=== PATIENT | female | born 1960 | race Asian ===

== ENCOUNTER 2016-12-12 16:41 | Emergency (ER) | payer OTHER ==
[~2016-12-12] VITALS: Ht 154.9 cm; Wt 57.3 kg
[~2016-12-12 16:41] MED LIST: CANA100T PO; LIRA0.6P2 SQ; METF10002 PO; RAMI10CA23 PO; SIMV20TA6 PO
[2016-12-12 19:00] VITALS: BP 165/92
[2016-12-13 12:20] LABS: HEPATITIS Bs ANTIGEN SCREEN P Negative (Negative); HEPATITIS C AB SCREEN 0.1 s/co ratio (0.0-0.9)
== END 2016-12-12 19:14 | disposition home or self-care (01) ==
LOC: EMS 16:43
DX: S61.234A Puncture wound without foreign body of right ring finger without damage to nail, initial encounter (principal); E11.9 Type 2 diabetes mellitus without complications; I10 Essential (primary) hypertension; E78.00 Pure hypercholesterolemia, unspecified; X58.XXXA Exposure to other specified factors, initial encounter; Y93.89 Activity, other specified; Y92.89 Other specified places as the place of occurrence of the external cause; Y99.8 Other external cause status
CPT/HCPCS: 80074; 99284

== ENCOUNTER → 2017-07-02 | Outpatient (CLI) | payer OTHER ==
[~2017-07-02] MED LIST changes: -METF10002 PO
== END | disposition home or self-care (01) ==
LOC: EMPHLTH 07:59
PROVIDERS: ATTEND Internal Medicine
DX: R76.11 Nonspecific reaction to tuberculin skin test without active tuberculosis (principal)

== ENCOUNTER → 2017-07-05 | Outpatient (CLI) | payer OTHER ==
[2017-07-05 11:47] LABS: BASOPHILS # (AUTO) 0.03 K/uL (0.00-0.20); BASOPHILS % (AUTO) 0.5 % (0.0-2.0); EOSINOPHILS # (AUTO) 0.06 K/uL (0.00-0.70); EOSINOPHILS % (AUTO) 1.16 % (1.0-6.0); HEMATOCRIT 40.7 % (36-46); HEMOGLOBIN 13.5 g/dL (12.0-16.0); LYMPHOCYTES # (AUTO) 2.9 K/uL (1.0-4.8); LYMPHOCYTES % (AUTO) 52.8 % (22.0-44.0); MEAN CORPUSCULAR HEMOGLOBIN 23.9 pg (26.0-34.0); MEAN CORPUSCULAR HGB CONC 33.1 G/dL (31.0-37.0); MEAN CORPUSCULAR VOLUME 72 fL (80-100); MONOCYTES # (AUTO) 0.3 K/uL (0.1-1.0); MONOCYTES % (AUTO) 5.7 % (2.0-9.0); NEUTROPHILS # (AUTO) 2.2 K/uL (1.8-7.7); NEUTROPHILS % (AUTO) 39.8 % (40.0-70.0); PLATELET COUNT (AUTO) 202 K/uL (150-450); RED BLOOD CELL COUNT(AUTO) 5.65 MIL/uL (4.00-5.20); RED CELL DISTRIBUTION WIDTH 14.3 % (11.5-14.5); WHITE BLOOD COUNT (AUTO) 5.5 K/uL (4.5-11.0)
[2017-07-05 11:57] LABS: ALANINE AMINOTRANSFERASE 32 U/L (12-78); ALBUMIN 4.1 g/dL (3.4-5.0); ANION GAP 12 mmol/L (8-16); ASPARTATE AMINOTRANSFERASE 24 U/L (15-37); BILIRUBIN,TOTAL 0.8 mg/dL (0.1-1.0); CALCIUM, TOTAL 9.4 mg/dL (8.8-10.5); CARBON DIOXIDE 24 mmol/L (22-29); CHLORIDE 105 mmol/L (98-107); CHOL/HDL RATIO 3.1 (3.9-5.7); CREATININE 0.67 mg/dL (0.60-1.30); GLOMERULAR FILTR. RATE CALC > 60 mL/min (>60); POTASSIUM 3.8 mmol/L (3.5-5.1); SODIUM SERUM 141 mmol/L (136-145); TOTAL PROTEIN, SERUM 8.3 g/dL (6.4-8.2); UREA NITROGEN, BLOOD 17 mg/dL (7-18)
[2017-07-05 12:01] LABS: HEMOGLOBIN A1C 8.7 % (4.5-6.2)
[2017-07-05 12:35] LABS: RBC MORPHOLOGY COMMENT ABNORMAL RBC MORPH
== END | disposition home or self-care (01) ==
LOC: LABPV 09:26
PROVIDERS: ATTEND Internal Medicine
DX: Z00.01 Encounter for general adult medical examination with abnormal findings (principal); E11.9 Type 2 diabetes mellitus without complications; E78.5 Hyperlipidemia, unspecified
CPT/HCPCS: 83036

== ENCOUNTER → 2017-12-03 | Outpatient (CLI) | payer OTHER | END | disposition home or self-care (01) | LOC: RADPV 11:26 | PROVIDERS: ATTEND Internal Medicine | DX: M81.0 Age-related osteoporosis without current pathological fracture (principal) | CPT/HCPCS: 77080 ==

== ENCOUNTER → 2018-07-04 | Outpatient (CLI) | payer OTHER ==
[~2018-07-04] MED LIST changes: -RAMI10CA23 PO; +RAMI10CA69 PO
[2018-07-04 16:24] LABS: BASOPHILS % (AUTO) 0.5 % (0.0-2.0); HEMATOCRIT 44.3 % (36-46); HEMOGLOBIN 14.6 g/dL (12.0-16.0); LYMPHOCYTES # (AUTO) 2.5 K/uL (1.0-4.8); LYMPHOCYTES % (AUTO) 32.8 % (22.0-44.0); MEAN CORPUSCULAR HEMOGLOBIN 23.8 pg (26.0-34.0); MEAN CORPUSCULAR HGB CONC 32.9 G/dL (31.0-37.0); MEAN CORPUSCULAR VOLUME 72 fL (80-100); MONOCYTES # (AUTO) 0.4 K/uL (0.1-1.0); MONOCYTES % (AUTO) 5.8 % (2.0-9.0); NEUTROPHILS # (AUTO) 4.6 K/uL (1.8-7.7); NEUTROPHILS % (AUTO) 59.9 % (40.0-70.0); PLATELET COUNT (AUTO) 215 K/uL (150-450); RED BLOOD CELL COUNT(AUTO) 6.13 MIL/uL (4.00-5.20); RED CELL DISTRIBUTION WIDTH 14.3 % (11.5-14.5)
[2018-07-04 16:36] LABS: ALANINE AMINOTRANSFERASE 38 U/L (12-78); ALBUMIN 4.4 g/dL (3.4-5.0); ALKALINE PHOSPHATASE 88 U/L (46-116); ANION GAP 11 mmol/L (8-16); ASPARTATE AMINOTRANSFERASE 34 U/L (15-37); BILIRUBIN,TOTAL 1.1 mg/dL (0.1-1.0); CARBON DIOXIDE 26 mmol/L (22-29); CHLORIDE 103 mmol/L (98-107); CHOL/HDL RATIO 3.3 (3.9-5.7); CHOLESTEROL 160 mg/dL (131-200); CREATININE 0.89 mg/dL (0.60-1.30); GLOMERULAR FILTR. RATE CALC > 60 mL/min (>60); GLUCOSE,RANDOM 157 mg/dL (70-110); HDL CHOLESTEROL 48 mg/dL (40-60); LDL CHOL (CALC.) 57 mg/dL (0-130); POTASSIUM 3.9 mmol/L (3.5-5.1); SODIUM SERUM 140 mmol/L (136-145); TOTAL PROTEIN, SERUM 8.9 g/dL (6.4-8.2); TRIGLYCERIDES 274 mg/dL (15-150); UREA NITROGEN, BLOOD 15 mg/dL (7-18)
== END | disposition home or self-care (01) ==
LOC: LABPV 10:12
PROVIDERS: ATTEND Internal Medicine
DX: I10 Essential (primary) hypertension (principal); E11.9 Type 2 diabetes mellitus without complications; E78.2 Mixed hyperlipidemia
CPT/HCPCS: 83036

== ENCOUNTER → 2018-11-06 | Outpatient (CLI) | payer OTHER ==
[2018-11-06 09:46] LABS: BASOPHILS % (AUTO) 0.6 % (0.0-2.0); EOSINOPHILS % (AUTO) 3.6 % (1.0-6.0); HEMATOCRIT 39.7 % (36-46); LYMPHOCYTES # (AUTO) 2.6 K/uL (1.0-4.8); LYMPHOCYTES % (AUTO) 44.4 % (22.0-44.0); MEAN CORPUSCULAR HGB CONC 32.8 G/dL (31.0-37.0); MEAN CORPUSCULAR VOLUME 73 fL (80-100); MONOCYTES # (AUTO) 0.3 K/uL (0.1-1.0); MONOCYTES % (AUTO) 5.8 % (2.0-9.0); NEUTROPHILS # (AUTO) 2.7 K/uL (1.8-7.7); NEUTROPHILS % (AUTO) 45.6 % (40.0-70.0); PLATELET COUNT (AUTO) 217 K/uL (150-450); RED BLOOD CELL COUNT(AUTO) 5.44 MIL/uL (4.00-5.20); RED CELL DISTRIBUTION WIDTH 13.8 % (11.5-14.5)
[2018-11-06 09:59] LABS: HEMOGLOBIN A1C 11.2 % (4.5-6.2)
[2018-11-06 10:12] LABS: ALANINE AMINOTRANSFERASE 29 U/L (12-78); ALBUMIN 3.5 g/dL (3.4-5.0); ALKALINE PHOSPHATASE 105 U/L (46-116); ANION GAP 10 mmol/L (8-16); ASPARTATE AMINOTRANSFERASE 26 U/L (15-37); BILIRUBIN,TOTAL 0.5 mg/dL (0.1-1.0); CALCIUM, TOTAL 9.2 mg/dL (8.8-10.5); CARBON DIOXIDE 27 mmol/L (22-29); CHLORIDE 101 mmol/L (98-107); CHOL/HDL RATIO 3.2 (3.9-5.7); CHOLESTEROL 126 mg/dL (131-200); CREATININE 0.69 mg/dL (0.60-1.30); GLOMERULAR FILTR. RATE CALC > 60 mL/min (>60); GLUCOSE,RANDOM 256 mg/dL (70-110); HDL CHOLESTEROL 39 mg/dL (40-60); LDL CHOL (CALC.) 48 mg/dL (0-130); POTASSIUM 4.1 mmol/L (3.5-5.1); SODIUM SERUM 138 mmol/L (136-145); THYROID STIMULATING HORMONE 1.45 uIU/mL (0.36-3.74); TOTAL PROTEIN, SERUM 7.9 g/dL (6.4-8.2); TRIGLYCERIDES 197 mg/dL (15-150); UREA NITROGEN, BLOOD 14 mg/dL (7-18)
== END | disposition home or self-care (01) ==
LOC: LABPV 07:37
PROVIDERS: ATTEND Internal Medicine
DX: E11.9 Type 2 diabetes mellitus without complications (principal)
CPT/HCPCS: 83036; 84443; 84681

== ENCOUNTER → 2018-12-26 | Outpatient (CLI) | payer OTHER ==
[2018-12-26 11:48] LABS: CHOL/HDL RATIO 3.5 (3.9-5.7)
[2018-12-26 12:50] LABS: HEMOGLOBIN A1C 8.3 % (4.5-6.2)
== END | disposition home or self-care (01) ==
LOC: LABPV 09:33
PROVIDERS: ATTEND Internal Medicine
DX: E78.2 Mixed hyperlipidemia (principal); E11.69 Type 2 diabetes mellitus with other specified complication
CPT/HCPCS: 83036

== ENCOUNTER → 2019-09-04 | Outpatient (CLI) | payer OTHER ==
[~2019-09-04] MED LIST changes: +SIMV-43 PO; -SIMV20TA6 PO
[2019-09-04 12:33] LABS: ALANINE AMINOTRANSFERASE 27 U/L (12-78); ALBUMIN 3.9 g/dL (3.4-5.0); ALKALINE PHOSPHATASE 90 U/L (46-116); ANION GAP 13 mmol/L (8-16); ASPARTATE AMINOTRANSFERASE 28 U/L (15-37); CALCIUM, TOTAL 9.4 mg/dL (8.8-10.5); CARBON DIOXIDE 24 mmol/L (22-29); CHLORIDE 105 mmol/L (98-107); CHOL/HDL RATIO 3.3 (3.9-5.7); CHOLESTEROL 150 mg/dL (131-200); CREATININE 0.66 mg/dL (0.60-1.30); GLOMERULAR FILTR. RATE CALC > 60 mL/min (>60); GLUCOSE,RANDOM 143 mg/dL (70-110); HDL CHOLESTEROL 45 mg/dL (40-60); LDL CHOL (CALC.) 63 mg/dL (0-130); POTASSIUM 3.7 mmol/L (3.5-5.1); SODIUM SERUM 142 mmol/L (136-145); TOTAL PROTEIN, SERUM 8.1 g/dL (6.4-8.2); TRIGLYCERIDES 211 mg/dL (15-150); UREA NITROGEN, BLOOD 14 mg/dL (7-18)
[2019-09-04 12:36] LABS: HEMOGLOBIN A1C 10.1 % (4.5-6.2)
[2019-09-04 14:19] LABS: THYROID STIMULATING HORMONE 1.04 uIU/mL (0.36-3.74)
== END | disposition home or self-care (01) ==
LOC: LABPV 10:55
PROVIDERS: ATTEND Internal Medicine
DX: E11.9 Type 2 diabetes mellitus without complications (principal)
CPT/HCPCS: 83036; 84443

== ENCOUNTER → 2019-11-20 | Outpatient (CLI) | payer OTHER ==
[2019-11-20 12:07] LABS: CHOL/HDL RATIO 3.9 (3.9-5.7)
[2019-11-20 12:33] LABS: HEMOGLOBIN A1C 8.2 % (4.5-6.2)
== END | disposition home or self-care (01) ==
LOC: LABPV 10:39
PROVIDERS: ATTEND Internal Medicine
DX: E11.9 Type 2 diabetes mellitus without complications (principal)
CPT/HCPCS: 83036

== ENCOUNTER → 2019-11-26 | Outpatient (CLI) | payer OTHER | END | disposition home or self-care (01) | LOC: RADPV 07:37 | PROVIDERS: ATTEND Internal Medicine | DX: S22.059D Unspecified fracture of T5-T6 vertebra, subsequent encounter for fracture with routine healing (principal); R05 Cough; X58.XXXD Exposure to other specified factors, subsequent encounter ==

== ENCOUNTER 2020-03-09 13:38 | Inpatient (IN) | payer OTHER ==
[~2020-03-09] VITALS: Ht 152.4 cm; Wt 58.5 kg
[2020-03-09] MEDS ORDERED: METF-960 PO (14:01)
[2020-03-09 14:57] LABS: BASOPHILS % (AUTO) 0.2 % (0.0-2.0); EOSINOPHILS % (AUTO) 0.4 % (1.0-6.0); HEMATOCRIT 38.1 % (36-46); HEMOGLOBIN 12.2 g/dL (12.0-16.0); LYMPHOCYTES # (AUTO) 2.8 K/uL (1.0-4.8); LYMPHOCYTES % (AUTO) 26.3 % (22.0-44.0); MEAN CORPUSCULAR HEMOGLOBIN 23.6 pg (26.0-34.0); MEAN CORPUSCULAR HGB CONC 31.9 G/dL (31.0-37.0); MEAN CORPUSCULAR VOLUME 74 fL (80-100); MONOCYTES # (AUTO) 1.1 K/uL (0.1-1.0); MONOCYTES % (AUTO) 10.6 % (2.0-9.0); NEUTROPHILS # (AUTO) 6.6 K/uL (1.8-7.7); NEUTROPHILS % (AUTO) 62.5 % (40.0-70.0); PLATELET COUNT (AUTO) 233 K/uL (150-450); RED BLOOD CELL COUNT(AUTO) 5.16 MIL/uL (4.00-5.20); RED CELL DISTRIBUTION WIDTH 13.5 % (11.5-14.5)
[2020-03-09] MEDS ORDERED: FAMOTIDINE 20 MG TABLET PO ONE ×2 (15:00)
[2020-03-09] MEDS ORDERED: PB/HYOSCY/ATR/SCOP/LIDO/MAALOX 55 ML BOTTLE PO ONE (15:00)
[2020-03-09 15:12] LABS: GLUCOSE,POINT OF CARE 90 MG/DL (70-110)
[2020-03-09 15:18] LABS: CREATININE 1.1 mg/dL (0.60-1.30); POTASSIUM 3.7 mmol/L (3.5-5.1)
[2020-03-09 15:19] LABS: ALBUMIN 3.3 g/dL (3.4-5.0); BILIRUBIN,TOTAL 1.3 mg/dL (0.1-1.0)
[2020-03-09 15:22] LABS: CALCIUM, TOTAL 10.9 mg/dL (8.8-10.5)
[2020-03-09 15:27] LABS: TOTAL PROTEIN, SERUM 8.3 g/dL (6.4-8.2)
[2020-03-09] MEDS ORDERED: SODIUM CHLORIDE 0.9% 100 ML ONE (16:06)
[2020-03-09] MEDS ORDERED: IOVERSOL 350 MG/ML 100 ML VIAL ONE (16:06)
[2020-03-09 21:08] LABS: BASOPHILS % (AUTO) 0.4 % (0.0-2.0); EOSINOPHILS % (AUTO) 0.1 % (1.0-6.0); HEMATOCRIT 36.5 % (36-46); LYMPHOCYTES # (AUTO) 2.1 K/uL (1.0-4.8); MEAN CORPUSCULAR HEMOGLOBIN 24.2 pg (26.0-34.0); MEAN CORPUSCULAR HGB CONC 32.7 G/dL (31.0-37.0); MEAN CORPUSCULAR VOLUME 74 fL (80-100); MONOCYTES # (AUTO) 0.8 K/uL (0.1-1.0); MONOCYTES % (AUTO) 9.7 % (2.0-9.0); NEUTROPHILS # (AUTO) 5.7 K/uL (1.8-7.7); NEUTROPHILS % (AUTO) 65.8 % (40.0-70.0); PLATELET COUNT (AUTO) 251 K/uL (150-450); RED BLOOD CELL COUNT(AUTO) 4.95 MIL/uL (4.00-5.20); RED CELL DISTRIBUTION WIDTH 13.5 % (11.5-14.5)
[2020-03-09] MEDS ORDERED: 0.9% SODIUM CHLORIDE 10 ML SYRINGE IVP PRN ×2 (21:30→23:00)
[2020-03-09] MEDS ORDERED: ONDANSETRON HCL 4 MG/2 ML VIAL IVP PRN ×2 (21:30→23:00)
[2020-03-09] MEDS ORDERED: ACETAMINOPHEN 325 MG TABLET PO ONE (21:30)
[2020-03-09] MEDS ORDERED: ACETAMINOPHEN 325 MG TABLET PO PRN ×2 (21:30→23:00)
[2020-03-09] MEDS ORDERED: DEXTROSE 50%-WATER 25 GM/50 ML SYRINGE IVP PRN (23:00)
[2020-03-09] MEDS ORDERED: MAGNESIUM SULFATE 4 GM/WATER 100 ML IV PRN (23:00)
[2020-03-09] MEDS ORDERED: MAGNESIUM SULFATE 2 GM/WATER 50 ML IV PRN (23:00)
[2020-03-09] MEDS ORDERED: ZOLPIDEM TARTRATE 5 MG TABLET PO PRN (23:00)
[2020-03-09] MEDS ORDERED: INSULIN LISPRO 100 UNITS/ML SQ PRN (23:00)
[2020-03-09] MEDS ORDERED: POTASSIUM CHLORIDE 20 MEQ ER TABLET PO PRN (23:00)
[2020-03-09] MEDS ORDERED: MAGNESIUM OXIDE 400 MG TABLET PO PRN (23:00)
[2020-03-09] MEDS ORDERED: MORPHINE SULFATE 2 MG/ML SYRINGE IVP PRN (23:00)
[2020-03-09] MEDS ORDERED: POTASSIUM CHL 10 MEQ/WATER 50 ML IV PRN (23:00)
[2020-03-09] MEDS ORDERED: PNEUMOCOCCAL VACCINE POLYVALENT 0.5 ML VIAL [PPSV23] IM ONE (23:30)
[2020-03-09 23:45] VITALS: BP 127/81
[2020-03-10 04:51] VITALS: BP 107/59
[2020-03-10 06:44] LABS: GLUCOMETER DEV NAME(LOC) 5N.1; GLUCOSE,POINT OF CARE 140 MG/DL (70-110)
[2020-03-10 07:08] VITALS: BP 118/64
[2020-03-10 07:59] LABS: BASOPHILS % (AUTO) 0.4 % (0.0-2.0); EOSINOPHILS % (AUTO) 0.3 % (1.0-6.0); HEMATOCRIT 35.7 % (36-46); HEMOGLOBIN 11.4 g/dL (12.0-16.0); LYMPHOCYTES # (AUTO) 2.2 K/uL (1.0-4.8); LYMPHOCYTES % (AUTO) 27.1 % (22.0-44.0); MEAN CORPUSCULAR HEMOGLOBIN 23.7 pg (26.0-34.0); MEAN CORPUSCULAR VOLUME 74 fL (80-100); MONOCYTES % (AUTO) 12.8 % (2.0-9.0); NEUTROPHILS # (AUTO) 4.7 K/uL (1.8-7.7); NEUTROPHILS % (AUTO) 59.4 % (40.0-70.0); PLATELET COUNT (AUTO) 247 K/uL (150-450); RED BLOOD CELL COUNT(AUTO) 4.82 MIL/uL (4.00-5.20); RED CELL DISTRIBUTION WIDTH 13.4 % (11.5-14.5)
[2020-03-10] MEDS ORDERED: MetFORMIN HCL 500 MG TABLET PO SCH (08:00)
[2020-03-10 08:08] LABS: ANION GAP 14 mmol/L (8-16); CALCIUM, TOTAL 10.1 mg/dL (8.8-10.5); CARBON DIOXIDE 23 mmol/L (22-29); CHLORIDE 101 mmol/L (98-107); CREATININE 0.85 mg/dL (0.60-1.30); GLOMERULAR FILTR. RATE CALC > 60 mL/min (>60); GLUCOSE,RANDOM 121 mg/dL (70-110); POTASSIUM 3.2 mmol/L (3.5-5.1); SODIUM SERUM 138 mmol/L (136-145); UREA NITROGEN, BLOOD 18 mg/dL (7-18)
[2020-03-10] MEDS ORDERED: PANTOPRAZOLE SODIUM 40 MG DR TABLET PO SCH (09:00)
[2020-03-10 11:42] VITALS: BP 122/72
[2020-03-10 12:42] LABS: APPEARANCE,URINE CLOUDY (CLEAR); BILIRUBIN,URINE NEGATIVE (NEGATIVE); GLUCOSE, URINE (UA) >=1000 mg/dL (NEGATIVE); KETONES,URINE NEGATIVE (NEGATIVE); LEUKOCYTE ESTERASE ,URINE NEGATIVE (NEGATIVE); NITRATE,URINE NEGATIVE (NEGATIVE); OCCULT BLOOD,URINE NEGATIVE (NEGATIVE); PROTEIN,URINE NEGATIVE (NEGATIVE); UROBILINOGEN,URINE 0.2 mg/dL (<=1.0)
[2020-03-10 12:58] LABS: GLUCOMETER DEV NAME(LOC) 5N.1; GLUCOSE,POINT OF CARE 138 MG/DL (70-110)
[2020-03-10 13:19] LABS: BACTERIA,URINE None Seen /HPF (None Seen); RBC,URINE None Seen /HPF (0-2); SQUAMOUS EPITHELIAL CELL,UR Few /LPF (None Seen); WBC,URINE None Seen /HPF (0-5)
[2020-03-10 15:31] VITALS: BP 107/63
== END 2020-03-10 16:45 | disposition home or self-care (01) | DRG 700 ==
LOC: EMS 13:43 → 5S 21:23
PROVIDERS: ADMIT Internal Medicine; ATTEND Internal Medicine
DX: S37.019A Minor contusion of unspecified kidney, initial encounter (principal); E11.9 Type 2 diabetes mellitus without complications; I10 Essential (primary) hypertension; E78.00 Pure hypercholesterolemia, unspecified; E78.5 Hyperlipidemia, unspecified; E87.6 Hypokalemia; N28.1 Cyst of kidney, acquired; Z79.84 Long term (current) use of oral hypoglycemic drugs; Z90.710 Acquired absence of both cervix and uterus; X58.XXXA Exposure to other specified factors, initial encounter; Y93.89 Activity, other specified; Y92.89 Other specified places as the place of occurrence of the external cause; Y99.8 Other external cause status
CPT/HCPCS: 74177; 83735; 86850; 86900; 86901; 93005; J7050

== ENCOUNTER → 2020-05-19 | Outpatient (CLI) | payer OTHER ==
[~2020-05-19] MED LIST changes: -CANA100T PO; -LIRA0.6P2 SQ; +METF-960 PO; -RAMI10CA69 PO; -SIMV-43 PO
[2020-05-19 12:02] LABS: CALCIUM, TOTAL 9.5 mg/dL (8.8-10.5); CREATININE 1.03 mg/dL (0.60-1.30); POTASSIUM 3.8 mmol/L (3.5-5.1)
== END | disposition home or self-care (01) ==
LOC: LABPV 09:56
PROVIDERS: ATTEND Urology
DX: D30.00 Benign neoplasm of unspecified kidney (principal)

== ENCOUNTER → 2020-05-21 | Outpatient (CLI) | payer OTHER ==
[~2020-05-21] MED LIST changes: +IOVERSOL 350 MG/ML 100 ML VIAL ONE; +SODIUM CHLORIDE 0.9% 100 ML ONE
== END | disposition home or self-care (01) ==
LOC: RADMN 09:04
PROVIDERS: ATTEND Urology
DX: N28.1 Cyst of kidney, acquired (principal); D30.00 Benign neoplasm of unspecified kidney
CPT/HCPCS: 74178; J7050; Q9967

== ENCOUNTER → 2020-11-23 | Outpatient (CLI) | payer OTHER ==
[~2020-11-23] MED LIST changes: -IOVERSOL 350 MG/ML 100 ML VIAL ONE; -SODIUM CHLORIDE 0.9% 100 ML ONE
[2020-11-23 08:27] LABS: CALCIUM, TOTAL 10.3 mg/dL (8.8-10.5); CREATININE 0.95 mg/dL (0.60-1.30); POTASSIUM 3.7 mmol/L (3.5-5.1)
== END | disposition home or self-care (01) ==
LOC: LABPV 07:54
PROVIDERS: ATTEND Urology
DX: D30.00 Benign neoplasm of unspecified kidney (principal)

== ENCOUNTER → 2020-11-25 | Outpatient (CLI) | payer OTHER ==
[~2020-11-25] MED LIST changes: +IOVERSOL 350 MG/ML 100 ML VIAL ONE; +SODIUM CHLORIDE 0.9% 100 ML ONE
== END | disposition home or self-care (01) ==
LOC: RADMN 08:09
PROVIDERS: ATTEND Urology
DX: N28.1 Cyst of kidney, acquired (principal); I25.10 Atherosclerotic heart disease of native coronary artery without angina pectoris; K76.0 Fatty (change of) liver, not elsewhere classified; K57.30 Diverticulosis of large intestine without perforation or abscess without bleeding; M47.815 Spondylosis without myelopathy or radiculopathy, thoracolumbar region; D30.00 Benign neoplasm of unspecified kidney; Z90.710 Acquired absence of both cervix and uterus
CPT/HCPCS: 74178; J7050; Q9967

== ENCOUNTER → 2021-03-31 | Outpatient (CLI) | payer OTHER ==
[~2021-03-31] MED LIST changes: -IOVERSOL 350 MG/ML 100 ML VIAL ONE; -SODIUM CHLORIDE 0.9% 100 ML ONE
[2021-03-31 09:47] LABS: BASOPHILS % (AUTO) 0.7 % (0.0-2.0); EOSINOPHILS % (AUTO) 1.8 % (1.0-6.0); HEMATOCRIT 40.2 % (36-46); HEMOGLOBIN 12.9 g/dL (12.0-16.0); LYMPHOCYTES # (AUTO) 2.9 K/uL (1.0-4.8); LYMPHOCYTES % (AUTO) 43.3 % (22.0-44.0); MEAN CORPUSCULAR HEMOGLOBIN 23.7 pg (26.0-34.0); MEAN CORPUSCULAR VOLUME 74 fL (80-100); MONOCYTES # (AUTO) 0.4 K/uL (0.1-1.0); MONOCYTES % (AUTO) 6.1 % (2.0-9.0); NEUTROPHILS # (AUTO) 3.3 K/uL (1.8-7.7); NEUTROPHILS % (AUTO) 48.1 % (40.0-70.0); PLATELET COUNT (AUTO) 173 K/uL (150-450); RED BLOOD CELL COUNT(AUTO) 5.42 MIL/uL (4.00-5.20); RED CELL DISTRIBUTION WIDTH 14.2 % (11.5-14.5)
[2021-03-31 10:14] LABS: HEMOGLOBIN A1C 8.8 % (3.8-5.6)
[2021-03-31 10:16] LABS: ALANINE AMINOTRANSFERASE 31 U/L (12-78); ALBUMIN 3.8 g/dL (3.4-5.0); ALKALINE PHOSPHATASE 77 U/L (46-116); ANION GAP 14 mmol/L (8-16); ASPARTATE AMINOTRANSFERASE 29 U/L (15-37); BILIRUBIN,TOTAL 0.4 mg/dL (0.1-1.0); CALCIUM, TOTAL 9.9 mg/dL (8.8-10.5); CARBON DIOXIDE 22 mmol/L (22-29); CHLORIDE 106 mmol/L (98-107); CHOL/HDL RATIO 3.1 (3.9-5.7); CHOLESTEROL 135 mg/dL (131-200); CREATININE 0.69 mg/dL (0.60-1.30); GLOMERULAR FILTR. RATE CALC > 60 mL/min (>60); GLUCOSE,RANDOM 140 mg/dL (70-110); HDL CHOLESTEROL 43 mg/dL (40-60); LDL CHOL (CALC.) 57 mg/dL (0-130); POTASSIUM 3.8 mmol/L (3.5-5.1); SODIUM SERUM 142 mmol/L (136-145); THYROID STIMULATING HORMONE 1.24 uIU/mL (0.36-3.74); TOTAL PROTEIN, SERUM 7.8 g/dL (6.4-8.2); TRIGLYCERIDES 175 mg/dL (15-150); UREA NITROGEN, BLOOD 18 mg/dL (7-18)
== END | disposition home or self-care (01) ==
LOC: LABPV 08:18
PROVIDERS: ATTEND Internal Medicine
DX: E11.9 Type 2 diabetes mellitus without complications (principal); E78.5 Hyperlipidemia, unspecified
CPT/HCPCS: 80053; 80061; 82043; 82570; 83036; 84443; 85025

== ENCOUNTER → 2021-04-27 | Outpatient (CLI) | payer OTHER ==
[2021-04-27 11:37] LABS: BASOPHILS % (AUTO) 0.7 % (0.0-2.0); EOSINOPHILS % (AUTO) 1.3 % (1.0-6.0); HEMATOCRIT 40.1 % (36-46); HEMOGLOBIN 12.9 g/dL (12.0-16.0); LYMPHOCYTES # (AUTO) 2.8 K/uL (1.0-4.8); LYMPHOCYTES % (AUTO) 43.6 % (22.0-44.0); MEAN CORPUSCULAR HEMOGLOBIN 24.1 pg (26.0-34.0); MEAN CORPUSCULAR HGB CONC 32.2 G/dL (31.0-37.0); MEAN CORPUSCULAR VOLUME 75 fL (80-100); MONOCYTES # (AUTO) 0.4 K/uL (0.1-1.0); MONOCYTES % (AUTO) 6.4 % (2.0-9.0); NEUTROPHILS # (AUTO) 3.1 K/uL (1.8-7.7); PLATELET COUNT (AUTO) 191 K/uL (150-450); RED BLOOD CELL COUNT(AUTO) 5.35 MIL/uL (4.00-5.20); RED CELL DISTRIBUTION WIDTH 14.5 % (11.5-14.5)
[2021-04-27 12:14] LABS: HEMOGLOBIN A1C 8.7 % (3.8-5.6)
[2021-04-27 12:24] LABS: ALANINE AMINOTRANSFERASE 30 U/L (12-78); ALBUMIN 3.9 g/dL (3.4-5.0); ALKALINE PHOSPHATASE 82 U/L (46-116); ANION GAP 15 mmol/L (8-16); ASPARTATE AMINOTRANSFERASE 24 U/L (15-37); BILIRUBIN,TOTAL 0.5 mg/dL (0.1-1.0); CALCIUM, TOTAL 9.9 mg/dL (8.8-10.5); CARBON DIOXIDE 22 mmol/L (22-29); CHLORIDE 105 mmol/L (98-107); CHOLESTEROL 157 mg/dL (131-200); CREATININE 0.86 mg/dL (0.60-1.30); GLOMERULAR FILTR. RATE CALC > 60 mL/min (>60); GLUCOSE,RANDOM 144 mg/dL (70-110); HDL CHOLESTEROL 52 mg/dL (40-60); LDL CHOL (CALC.) 71 mg/dL (0-130); POTASSIUM 3.8 mmol/L (3.5-5.1); SODIUM SERUM 142 mmol/L (136-145); THYROID STIMULATING HORMONE 1.32 uIU/mL (0.36-3.74); TOTAL PROTEIN, SERUM 8.2 g/dL (6.4-8.2); TRIGLYCERIDES 171 mg/dL (15-150); UREA NITROGEN, BLOOD 18 mg/dL (7-18)
== END | disposition home or self-care (01) ==
LOC: LABMN 11:11
PROVIDERS: ATTEND Internal Medicine
DX: E11.9 Type 2 diabetes mellitus without complications (principal); E78.5 Hyperlipidemia, unspecified; I10 Essential (primary) hypertension
CPT/HCPCS: 80053; 80061; 82043; 82570; 83036; 84443; 85025

== ENCOUNTER → 2021-05-11 | Outpatient (CLI) | payer OTHER | END | disposition home or self-care (01) | LOC: RADMN 09:00 | PROVIDERS: ATTEND Urology | DX: N28.1 Cyst of kidney, acquired (principal) | CPT/HCPCS: 76770 ==